=== PATIENT | male | born 1995 | race Two or more races ===

== ENCOUNTER 2021-11-17 14:48 | Emergency (ER) | payer OTHER ==
[~2021-11-17] VITALS: Ht 177.8 cm; Wt 104.3 kg
== END 2021-11-17 18:33 | disposition home or self-care (01) ==
LOC: ER 14:48
DX: S62.605A Fracture of unspecified phalanx of left ring finger, initial encounter for closed fracture (principal); W22.03XA Walked into furniture, initial encounter; Y93.9 Activity, unspecified; Y92.9 Unspecified place or not applicable